=== PATIENT | male | born 1985 | race Caucasian/White ===

== ENCOUNTER 2016-03-28 00:42 | Emergency (ER) ==
--- NOTE | 2016-03-28 01:04 | ED EKG INTERP ---
EKG Interpretation - EKG Time of EKG reading by physician:: 01:03 EKG Read and Signed by:: Nick Ernandez Rate: 96 Rhythm: NSR [place]: normal QRS: normal MT Interval: normal Attestation - Scribe Verification/Attestation Scribe:: Rose Hoffmann Acting as Scribe for:: Nick Ernandez Scribe documention review:: This chart was documented by a scribe and accurately reflects the service the provider performed and the decisions made by the provider.
--- NOTE | 2016-03-28 01:24 | PROVIDER DOCUMENTATION ---
Addendum entered and electronically signed by Nick Ernandez MD 03/28/16 02:32 : Additional Progress - ADDITIONAL PLAN OF CARE/RESULTS Additional Progress/Plan/Lab Results: denies suicidal or homicidal ideation Original Note: HPI-General Adult - General Source: patient - History of Present Illness -Gen Adult Nature of Presenting Problems: 30 y/o m presents to the ed with left sided weakness. pt states he has been under a lot of stress lately since his ex took off out of state with his 7 month old son. pt does have a hx of anxiety attacks.pt states he has been like this for about a week. pt denies any other symptoms. Location of Pain/Injury: reports: generalized Quality of Pain: reports: aching Severity: reports: mild Onset/Duration: reports: 1 week ago Timing: reports: still present Associated Symptoms: reports: weakness Similar Symptoms Previously?: No Recently seen or treated by another doctor?: No <Rose Hoffmann - Last Filed: 03/28/16 01:20> - General Source: patient (Patient is a 30 year old white male with history of anxiety disorder who takes Klonopin who became upset tonight and developed weakness and pain in his arms,nausea, and spasms in his wrist after finding out that his had taken his 6month old son out of state. Patient was not comfortable telling the triage nurse. He preferred to talk to a male "man to man".) - History of Present Illness -Gen Adult Location of Pain/Injury: reports: upper extremity Pain Radiation: reports: no radiation Quality of Pain: reports: aching Onset/Duration: reports: just prior to arrival Timing: reports: improving Context/Activities at Onset: reports: recent emotional stress Associated Symptoms: reports: nausea, weakness. denies: chest pain, diaphoresis , diarrhea, EENT symptoms, genitourinary problems, vomiting, trouble walking Similar Symptoms Previously?: Yes Recently seen or treated by another doctor?: No <Nick Ernanedz - Last Filed: 03/28/16 02:31> - General Chief Complaint: Weakness Stated Complaint: NAUSEATED, WEAK, LT ARM PAIN Time Seen by Provider: 03/28/16 00:58 Allergies/Adverse Reactions: Patient Allergies Allergy/AdvReac Type Severity Reaction Status Date / Time ketorolac tromethamine * Allergy Mild RASH Verified 03/11/16 18:20 [From Toradol] Home Medications: Clonazepam [Klonopin] 1 mg PO BID 01/31/16 Diltiazem HCl [Diltiazem ER] 240 mg PO DAILY 01/31/16 Omeprazole [Prilosec] 40 mg PO DAILY 01/31/16 Levothyroxine [Synthroid] 25 mcg PO DAILY 03/11/16 Review of Systems - Adult - REVIEW OF SYSTEMS - ADULT Constitutional: denies: chills, fever Cardiovascular: denies: chest pain, palpitations Neurological: denies: dizziness/vertigo, headache/migraines <Rose Hoffmann - Last Filed: 03/28/16 01:20> - REVIEW OF SYSTEMS - ADULT Constitutional: denies: chills, fever Eyes: reports: no symptoms reported Ears, Nose, Mouth & Throat: reports: no symptoms reported Cardiovascular: denies: chest pain Respiratory: denies: shortness of breath Gastrointestinal: reports: nausea. denies: vomiting Genitourinary: denies: dysuria Musculoskeletal: reports: no symptoms reported Integumentary: reports: see HPI Neurological: denies: ataxia, numbness Psychiatric: reports: anxiety, emotional problems. denies: suicidal thoughts Endocrine: reports: no symptoms reported All Other Systems: Reviewed and Negative <Nick Ernandez - Last Filed: 03/28/16 02:31> Past History - Adult - PAST MEDICAL HISTORY-ADULT Review of Records: reports: Old Records Reviewed, Nursing Assessment Review, Medications Reviewed Cardiovascular: reports: HTN Respiratory: reports: asthma Gastrointestinal: reports: GERD Musculoskeletal: reports: arthritis Psychiatric: reports: anxiety - PRIOR SURGERIES/PROCEDURES Surgical/Procedure History: reports: appendectomy, other (eye surgery) - IMMUNIZATION STATUS Childhood Immunizations: See Nurse Assessment Flu Vaccine: See Nurse Assessment - SOCIAL HISTORY Smoking: chew Provider spent 3-5 mins advising pt. on dangers of tobacco.: Discussed manners to quit use, and f/u contacts for add'l counseling. <Rose Hoffmann - Last Filed: 03/28/16 01:20> Physical Exam-General - PHYSICAL EXAM-ADULT Initial Vital Signs Reviewed: Yes - CONSTITUTIONAL General Appearance: alert, anxious - EYES Eyes: PERRL/EOMI, pink conjunctivae, fundi clear, no AV nicking - HEAD, EARS, NOSE, MOUTH & THROAT HENMT: normocephalic/atraumatic, moist mucous membranes, normal ENT inspection - NECK Neck: non-tender, full range of motion, supple - RESPIRATORY Respiratory: chest non-tender, lungs clear, normal breath sounds - CARDIOVASCULAR Cardiovascular: normal peripheral pulses, regular rate, rhythm - GASTROINTESTINAL (ABDOMEN) Abdominal Exam: normal bowel sounds, non tender, soft - MUSCULOSKELETAL Back Exam: normal inspection - SKIN Integumentary: normal color, normal turgor, warm/dry - PSYCHIATRIC Psych/Mental Status: normal mood/affect, normal thought content, normal thought process, oriented x 3 <Rose Hoffmann - Last Filed: 03/28/16 01:20> Departure <Rose Hoffmann - Last Filed: 03/28/16 01:20> - Departure Time of Disposition Order: 02:30 Certified Medical Emergency: Emergent <Nick Ernandez - Last Filed: 03/28/16 02:31> - Departure DIAGNOSIS: Anxiety as acute reaction to exceptional stress Disposition: HOME 01 Condition: Stable Additional Instructions: continue current klonopin, plenty of rest, followup with mental health Referrals: Aj Fernandes Jr, MD [Primary Care Provider] - Physician Attestation
[2016-03-28] MEDS ORDERED: ATIVAN IM ONE (01:25)
[2016-03-28 02:10] LABS: MANUAL DIFF NEEDED? NO
[2016-03-28 02:12] LABS: BASO% 0.1 % (0.0-0.8); EOS# 0.24 X1000 (0.0-0.7); EOS% 1.7 % (0.0-10.0); HEMATOCRIT 43.7 % (42.0-52.0); HEMOGLOBIN 14.7 g/dL (14.0-18.0); IMM GRAN# 0.05 X1000 (0.0-0.04); IMM GRAN% 0.4 % (0.0-0.5); LYMPH% 29.2 % (20.5-51.1); MCH 26.6 PG (27-31); MCHC 33.6 g/dL (33-37); MCV 79.2 FL (81-99); MONO# 1.34 X1000 (0.11-0.59); MONO% 9.5 % (1.7-9.3); MPV 9.7 FL (7.4-10.4); NEUT% 59.1 % (42.2-75.2); PLT 391 X1000 (130-400); RBC 5.52 XMIL (4.7-6.1)
[2016-03-28 02:25] LABS: AGAP 14; ALKALINE PHOSPHATASE 70 U/L (32-122); BUN 7 mg/dL (8-22); CALCIUM 8.7 mg/dL (8.8-10.2); CHLORIDE 101 mmol/L (98-107); CK PROFILE 42 U/L (24-204); COSMO 273; GOT 15 U/L (10-34); GPT 19 U/L (10-44); SODIUM 138 mmol/L (136-145); TCO2 23 mmol/L (25-35); TOTAL BILIRUBIN 0.44 mg/dL (0.20-1.00); TOTAL PROTEIN 7.4 g/dL (6.3-8.3)
[2016-03-28 02:32] LABS: UR AMPHETAMINES QUAL NONE DETECTED (NONE DETECT); UR BARBITUATES QUAL NONE DETECTED (NONE DETECT); UR BENZODIAZEPIN QUAL PRESUMPTIVE POSITIVE (NONE DETECT); UR CANNABINOIDS QUAL NONE DETECTED (NONE DETECT); UR COCAINE QUAL NONE DETECTED (NONE DETECT); UR METHADONE QUAL NONE DETECTED (NONE DETECT); UR OPIATES QUAL PRESUMPTIVE POSITIVE (NONE DETECT); UR OXYCODONE QUAL NONE DETECTED (NONE DETECT); UR PCP QUAL NONE DETECTED (NONE DETECT)
[2016-03-28 02:36] VITALS: BP 141/94
--- NOTE | 2016-03-29 05:40 | EKG Report ---
Test Performed on : 03/28/2016 00:50:20 AM Test Reason : weakness Blood Pressure : / mmHG Vent. Rate : 096 BPM Atrial Rate : 096 BPM P-R Int : 168 ms QRS Dur : 098 ms QT Int : 368 ms P-R-T Axes : 010 -48 009 degrees QTc Int : 464 ms Normal sinus rhythm. Pulmonary disease pattern Incomplete right bundle branch block Left anterior fascicular block Abnormal ECG When compared with ECG of 11-MAR-2016 17:13, No significant change was found Unconfirmed Result
== END 2016-03-28 02:36 | disposition home or self-care (01) ==
LOC: ED 00:42
DX: F41.8 Other specified anxiety disorders (principal); M62.81 Muscle weakness (generalized); M79.602 Pain in left arm; M79.601 Pain in right arm; R11.0 Nausea; M62.838 Other muscle spasm; I10 Essential (primary) hypertension; K21.9 Gastro-esophageal reflux disease without esophagitis; Z79.899 Other long term (current) drug therapy; M19.90 Unspecified osteoarthritis, unspecified site; F17.220 Nicotine dependence, chewing tobacco, uncomplicated; Z71.6 Tobacco abuse counseling
CPT/HCPCS: 80053; 82550; 84484; 85025; 93005; 96372; G0480; J2060

== ENCOUNTER 2016-05-24 20:42 | Emergency (ER) ==
[2016-05-24] MEDS ORDERED: DUONEB (A & A) INH ONE (21:48)
[2016-05-24] MEDS ORDERED: DECADRON IM ONE (21:48)
--- NOTE | 2016-05-24 21:48 | PROVIDER DOCUMENTATION ---
HPI-General Adult <Amanda Namyldenis MachucaElizabeth - Last Filed: 05/24/16 21:49> - General Source: patient - History of Present Illness -Gen Adult Nature of Presenting Problems: 30 year old M presents to the ED with a cc of cough, congestion, and body aches with an onset of this morning. PT states that he has been exposed to strep throat in the last few days. Location of Pain/Injury: reports: generalized Pain Radiation: reports: no radiation Quality of Pain: reports: aching Severity: reports: mild Onset/Duration: reports: this morning Timing: reports: still present Context/Activities at Onset: reports: none Modifying Factors: improves with: nothing Associated Symptoms: reports: cough, fatigue, muscle aches, sinus congestion/ drainage Similar Symptoms Previously?: No Recently seen or treated by another doctor?: No <Nurys Chung - Last Filed: 05/25/16 01:13> - General Chief Complaint: General Adult Stated Complaint: RT FT SWOLLEN, BODY ACHES, CONGESTED Time Seen by Provider: 05/24/16 21:41 Allergies/Adverse Reactions: Patient Allergies Allergy/AdvReac Type Severity Reaction Status Date / Time ketorolac tromethamine * Allergy Mild RASH Verified 05/24/16 22:10 [From Toradol] Home Medications: Home Medication List Medication Instructions Recorded Confirmed Last Taken Type Diltiazem HCl [Diltiazem ER] 240 mg PO DAILY 01/31/16 05/24/16 05/24/16 History Omeprazole [Prilosec] 40 mg PO DAILY 01/31/16 05/24/16 05/24/16 History Albuterol Sulfate [Proair Hfa] 8.5 gm IH Q4H PRN PRN #1 [email or web address] 05/24/16 Unknown Rx Azithromycin [Zithromax Z-Ap] 250 mg PO DIRECTED #1 pkg 05/24/16 Unknown Rx Review of Systems - Adult - REVIEW OF SYSTEMS - ADULT Constitutional: reports: fatique. denies: chills, fever Eyes: reports: no symptoms reported Ears, Nose, Mouth & Throat: reports: sinus problem. denies: ear pain, throat pain Cardiovascular: reports: no symptoms reported Respiratory: reports: cough. denies: shortness of breath Gastrointestinal: reports: no symptoms reported Genitourinary: reports: no symptoms reported Musculoskeletal: reports: muscle aches. denies: muscle weakness Integumentary: denies: skin sores/ulcer, skin thickening Neurological: denies: dizziness/vertigo, headache/migraines Psychiatric: reports: no symptoms reported Endocrine: reports: no symptoms reported Hematologic/Lymphatic: reports: no symptoms reported Allergic/Immunologic: reports: no symptoms reported All Other Systems: Reviewed and Negative <Nurys Chung - Last Filed: 05/25/16 01:13> Past History - Adult - PAST MEDICAL HISTORY-ADULT Review of Records: reports: Nursing Assessment Review, Medications Reviewed Major Childhood Illnesses: reports: denies history Cardiovascular: reports: HTN Respiratory: reports: asthma Gastrointestinal: reports: GERD Musculoskeletal: reports: arthritis Psychiatric: reports: anxiety - PRIOR SURGERIES/PROCEDURES Surgical/Procedure History: reports: appendectomy, other (eye surgery) - IMMUNIZATION STATUS Childhood Immunizations: See Nurse Assessment Flu Vaccine: See Nurse Assessment - SOCIAL HISTORY Smoking: chew Provider spent 3-5 mins advising pt. on dangers of tobacco.: Discussed manners to quit use, and f/u contacts for add'l counseling. Substance Use: none/never Alcohol Use Frequency: never <Nurys Chung - Last Filed: 05/25/16 01:13> Physical Exam-General - PHYSICAL EXAM-ADULT Initial Vital Signs Reviewed: Yes - CONSTITUTIONAL General Appearance: appears well, alert, no apparent distress - HEAD, EARS, NOSE, MOUTH & THROAT HENMT: other (minimally enlarged tonsils) - RESPIRATORY Respiratory: chest non-tender, normal breath sounds, wheezing - CARDIOVASCULAR Cardiovascular: normal peripheral pulses, regular rate, rhythm, no edema - GASTROINTESTINAL (ABDOMEN) Abdominal Exam: non tender, soft - MUSCULOSKELETAL Extremity: normal inspection - SKIN Integumentary: normal color, normal turgor, warm/dry - PSYCHIATRIC Psych/Mental Status: normal mood/affect, normal thought content, normal thought process, oriented x 3 <Nurys Chung - Last Filed: 05/25/16 01:13> Progress - PLAN OF CARE/RESULTS Progress/Plan/Lab Results: plan of care: medications Orders Category Date Time Status INFLUENZA SCREEN A/B Stat Lab 05/24/16 20:55 Completed Albuterol 2.5MG/Ipratrop 0.5MG [Duoneb (A & A)] Med 05/24/16 21:48 Discontinued 3 ml INH NOW ONE Dexamethasone [Decadron] Med 05/24/16 21:48 Discontinued 4 mg IM NOW ONE Aerosol Treatments Routine Oth 05/24/16 21:49 Completed Aerosol Treatments Stat Oth 05/24/16 21:49 Completed Vital Signs - 24 hr 05/24/16 05/24/16 05/24/16 20:50 22:02 22:20 Temperature 98.9 F 98.4 F Pulse Rate 116 H 115 H 104 H Respiratory 18 18 20 Rate Blood Pressure 147/98 162/96 O2 Sat by Pulse 100 98 Oximetry Pt given results and will be d/c home w/ rx to follow up with PCP. Pt verbally understood instructions. PT remained clinically stable throughout the course of the ED stay and will return if symptoms worsen. <Nurys Chung - Last Filed: 05/25/16 01:13> Departure - Departure Time of Disposition Order: 21:49 Certified Medical Emergency: Emergent <Rosy Nam - Last Filed: 05/24/16 21:49> <Nurys Chung - Last Filed: 05/25/16 01:13> - Departure DIAGNOSIS: Bronchitis Disposition: HOME 01 Condition: Stable Additional Instructions: Follow up with your primary care physician ED Follow Up Instructions: You have been treated by a care provider in the Emergency Department. These instructions are being provided to you so you can have an understanding of how to care for yourself upon discharge. Upon discharge from the Emergency Department, you are responsible for making arrangements for follow-up care by a physician of your choice. Take all prescribed medications as directed. Return to the Emergency Department immediately for any new or worsening symptoms. You may call the Physician Referral phone number at [phone] to obtain a list of Physicians who are taking new patients. Prescriptions: Albuterol Sulfate [Proair Hfa] 8.5 gm IH Q4H PRN PRN #1 hfa.[email or web address] PRN Reason: Wheezing Azithromycin [Zithromax Z-Ap] 250 mg PO DIRECTED #1 pkg Referrals: None,PCP [Primary Care Provider] - Forms: Return to School/Parent Work Instructions: Acute Bronchitis, [id number] Attestation - Scribe Verification/Attestation Scribe:: Nurys Chung Acting as Scribe for:: Rosy Nam Scribe documention review:: This chart was documented by a scribe and accurately reflects the service the provider performed and the decisions made by the provider. <Nurys Chung - Last Filed: 05/25/16 01:13> Physician Attestation - Physician Attestation I, the provider, attest to the following statement:: Rosy Nam Physician documentation Attestation:: This documentation recorded by the scribe accurately reflects the service I personally performed and the decisions made by me. <Nurys Chung - Last Filed: 05/25/16 01:13>
[2016-05-24 22:24] VITALS: BP 162/96
== END 2016-05-24 22:28 | disposition home or self-care (01) ==
LOC: ED 20:42
DX: J40 Bronchitis, not specified as acute or chronic (principal); R05 Cough; R09.81 Nasal congestion; M79.1 Myalgia; R53.83 Other fatigue; R22.41 Localized swelling, mass and lump, right lower limb; J35.1 Hypertrophy of tonsils; R06.2 Wheezing; Z79.899 Other long term (current) drug therapy; I10 Essential (primary) hypertension; K21.9 Gastro-esophageal reflux disease without esophagitis; M19.90 Unspecified osteoarthritis, unspecified site; F17.220 Nicotine dependence, chewing tobacco, uncomplicated; Z71.6 Tobacco abuse counseling
CPT/HCPCS: 87804; 94640; J1100

== ENCOUNTER 2016-05-26 13:12 | Emergency (ER) ==
--- NOTE | 2016-05-26 14:54 | PROVIDER DOCUMENTATION ---
HPI-Abdominal Pain/GI Problem - General Chief Complaint: Constipation Stated Complaint: "CONSTIPATED" Time Seen by Provider: 05/26/16 14:53 Source: patient Allergies/Adverse Reactions: Patient Allergies Allergy/AdvReac Type Severity Reaction Status Date / Time ketorolac tromethamine * Allergy Mild RASH Verified 05/24/16 22:10 [From Toradol] Home Medications: Home Medication List Medication Instructions Recorded Confirmed Last Taken Type Diltiazem HCl [Diltiazem ER] 240 mg PO DAILY 01/31/16 05/24/16 05/24/16 History Omeprazole [Prilosec] 40 mg PO DAILY 01/31/16 05/24/16 05/24/16 History Albuterol Sulfate [Proair Hfa] 8.5 gm IH Q4H PRN PRN #1 [email or web address] 05/24/16 Unknown Rx Azithromycin [Zithromax Z-Ap] 250 mg PO DIRECTED #1 pkg 05/24/16 Unknown Rx Promethazine [Phenergan] 25 mg PO Q6H PRN PRN #20 tablet 05/26/16 Unknown Rx - History of Present Illness-ABD Nature of Presenting Problems: PATIENT REPORTS HAS BEEN TAKING NORCO SINCE DENTAL PROCEDURE. HAS NOT HAD BM X4 DAYS. NO RELIEF WITH OTC LAXATIVES/STOOL SOFTENERS. STATES GENERALIZED ABD PAIN AND NAUSEA. Abdominal Pain Onset Location: reports: generalized abdomen Pain Radiation: reports: no radiation Quality of Pain: reports: aching, sharp Severity in ED: reports: moderate Onset/Duration: reports: 4 days ago Timing: reports: still present Activities at Onset: reports: none Modifying Factors: improves with: nothing Associated Symptoms: reports: nausea Last BM: 4 days ago Dark Stools Present?: reports: none noticed Rectal Bleeding: reports: none Review of Systems - Adult - REVIEW OF SYSTEMS - ADULT Constitutional: reports: no symptoms reported Eyes: reports: no symptoms reported Ears, Nose, Mouth & Throat: reports: no symptoms reported Cardiovascular: reports: no symptoms reported Respiratory: reports: no symptoms reported Gastrointestinal: reports: see HPI Genitourinary: reports: no symptoms reported Musculoskeletal: reports: no symptoms reported Integumentary: reports: no symptoms reported Neurological: reports: no symptoms reported Psychiatric: reports: no symptoms reported Endocrine: reports: no symptoms reported Hematologic/Lymphatic: reports: no symptoms reported Allergic/Immunologic: reports: no symptoms reported Past History - Adult - PAST MEDICAL HISTORY-ADULT Review of Records: reports: Nursing Assessment Review, Medications Reviewed, Social history reviewed & non-contributory. Major Childhood Illnesses: reports: denies history Cardiovascular: reports: HTN Respiratory: reports: asthma Gastrointestinal: reports: GERD Musculoskeletal: reports: arthritis Psychiatric: reports: anxiety - PRIOR SURGERIES/PROCEDURES Surgical/Procedure History: reports: appendectomy, other (eye surgery) - IMMUNIZATION STATUS Childhood Immunizations: See Nurse Assessment Flu Vaccine: See Nurse Assessment Physical Exam-General - PHYSICAL EXAM-ADULT Initial Vital Signs Reviewed: Yes - CONSTITUTIONAL General Appearance: appears well, alert, no apparent distress - EYES Eyes: PERRL/EOMI - HEAD, EARS, NOSE, MOUTH & THROAT HENMT: normocephalic/atraumatic - NECK Neck: full range of motion, supple - RESPIRATORY Respiratory: lungs clear - CARDIOVASCULAR Cardiovascular: regular rate, rhythm - GASTROINTESTINAL (ABDOMEN) Abdominal Exam: normal bowel sounds, soft, tenderness (GENERALIZED) - LYMPHATIC Lymphatic: no adenopathy - MUSCULOSKELETAL Extremity: normal range of motion, normal gait - SKIN Integumentary: normal color, normal turgor, warm/dry - NEUROLOGIC Neurologic: grossly normal, no motor/sensory deficits - PSYCHIATRIC Psych/Mental Status: normal mood/affect, normal thought content, normal thought process, oriented x 3 Progress - PLAN OF CARE/RESULTS Progress/Plan/Lab Results: 1635--NO BM SINCE RELISTOR DISCUSSED PATIENT WITH DR. PHELPS. DR. STORM STATES TO INSTRUCT PATIENT ON HIGH DOSE MIRALAX, 1 SCOOP Q6H TO PRODUCE BM. PATIENT VOICES UNDERSTANDING OF MIRALAX INSTRUCTIONS. Orders Category Date Time Status ABDOMEN FLAT/UPRIGHT [RAD] Stat Exams 05/26/16 14:10 Draft Methylnaltrexone [Relistor] Med 05/26/16 15:12 Discontinued 12 mg SUBQ NOW ONE Promethazine [Phenergan] Med 05/26/16 15:12 Discontinued 25 mg IM NOW ONE Vital Signs - 24 hr 05/26/16 13:18 Temperature 98 F Pulse Rate 98 H Respiratory 18 Rate Blood Pressure 154/107 O2 Sat by Pulse 98 Oximetry - REASSESSMENT Reassessment #1 Time Reassessed: 16:35 Status: improving (PATIENT STATES DROWSY FROM PHENERGAN, BUT NO LONGER NAUSEATED. STATES ABD PAIN HAS IMPROVED, BUT HAS NOT HAD ANY BM RESULTS SINCE RELISTOR GIVEN.) - XRAY 1 XRAY Study: Abdomen Impression: Normal XRAY Interpretation: NAD PER DR. RODRIGUEZ REPORT. Departure - Departure Time of Disposition Order: 16:43 DIAGNOSIS: Nausea Constipation Qualifiers: Constipation type: drug induced constipation Qualified Code(s): K59.03 - Drug induced constipation Disposition: HOME 01 Certified Medical Emergency: Emergent Condition: Good Additional Instructions: MIRALAX OVER THE COUNTER FOR CONSTIPATION SYMPTOMS. DISSOLVE 1 DOSE EVERY 6 HOURS TO HELP HAVE BOWEL MOVEMENT. USE OVER THE COUNTER STOOL SOFTENERS TO HELP AVOID ANY FURTHER CONSTIPATION WHILE TAKING NARCOTIC PAIN MEDICATION. ED Follow Up Instructions: You have been treated by a care provider in the Emergency Department. These instructions are being provided to you so you can have an understanding of how to care for yourself upon discharge. Upon discharge from the Emergency Department, you are responsible for making arrangements for follow-up care by a physician of your choice. Take all prescribed medications as directed. Return to the Emergency Department immediately for any new or worsening symptoms. You may call the Physician Referral phone number at [phone] to obtain a list of Physicians who are taking new patients. Prescriptions: Promethazine [Phenergan] 25 mg PO Q6H PRN PRN #20 tablet PRN Reason: Nausea Referrals: Alphonse Wilson MD [STAFF PHYSICIAN] - Forms: Return to School/Parent Work Instructions: Constipation, Adult, Kity-ef-Isoo Attestation - Physician/ FCO Attestation Patient care was provided by Advanced Practice Provider:: Yes Advanced Practice Provider:: Carlos Wise Advanced Practice Provider documentation review:: The Mid-level provider documentation, treatment plan and medical decision making was reviewed by the physician who agrees with all treatment and medical decision making by the MLP.
[2016-05-26] MEDS ORDERED: RELISTOR SUBQ ONE (15:12)
[2016-05-26] MEDS ORDERED: PHENERGAN IM ONE (15:12)
--- NOTE | 2016-05-26 15:21 | Diag Imaging Result Document ---
PROCEDURE NAME: ABDOMEN FLAT/UPRIGHT - 05/26/2016 FLAT AND UPRIGHT ABDOMEN: FINDINGS: There is a nonspecific bowel gas pattern. There is no evidence of organomegaly or mass. There are no abnormal calcifications. IMPRESSION: No evidence of acute disease.
[2016-05-26 16:58] VITALS: BP 146/93
== END 2016-05-26 17:03 | disposition home or self-care (01) ==
LOC: P.ED 13:12
DX: K59.03 Drug induced constipation (principal); T50.905A Adverse effect of unspecified drugs, medicaments and biological substances, initial encounter; R11.0 Nausea; R10.84 Generalized abdominal pain; R10.819 Abdominal tenderness, unspecified site; I10 Essential (primary) hypertension; M19.90 Unspecified osteoarthritis, unspecified site; K21.9 Gastro-esophageal reflux disease without esophagitis; Z79.899 Other long term (current) drug therapy
CPT/HCPCS: 74020; J2550

== ENCOUNTER 2018-06-08 12:48 | Inpatient (IN) ==
[2018-06-08] MEDS ORDERED: PHENOBARBITAL IV PRN (14:11)
[2018-06-08] MEDS ORDERED: NICOTINE GUM BUCCAL PRN (14:11)
[2018-06-08] MEDS ORDERED: D5W 1,000 ML IV PRN (14:11)
[2018-06-08] MEDS ORDERED: SENOKOT PO PRN (14:11)
[2018-06-08] MEDS ORDERED: SEROQUEL PO PRN (14:11)
[2018-06-08] MEDS ORDERED: MAALOX PLUS LIQUID PO PRN (14:11)
[2018-06-08] MEDS ORDERED: NICODERM PATCH TD PRN (14:11)
[2018-06-08] MEDS ORDERED: ZOFRAN IV PRN (14:11)
[2018-06-08] MEDS ORDERED: DULCOLAX PR PRN (14:11)
[2018-06-08] MEDS ORDERED: ZOFRAN IM PRN (14:11)
[2018-06-08] MEDS ORDERED: MOTRIN PO PRN (14:11)
[2018-06-08] MEDS ORDERED: TYLENOL PO PRN (14:11)
[2018-06-08] MEDS ORDERED: DESYREL PO PRN (14:11)
[2018-06-08] MEDS ORDERED: IMODIUM PO PRN ×2 (14:11)
[2018-06-08] MEDS: ZOFRAN ODT PO PRN (14:45)
[2018-06-08] MEDS ORDERED: TUBERSOL ID ONE (15:00)
[2018-06-08 15:22] LABS: HEMATOCRIT 48.5 % (42.0-52.0); HEMOGLOBIN 16.5 g/dL (14.0-18.0); MCH 27.1 PG (27-31); MCV 79.6 FL (81-99); MPV 9.6 FL (7.4-10.4); RBC 6.09 XMIL (4.7-6.1); RDW 13.3 % (11.5-14.5); WBC 15.36 X1000 (4.8-10.8)
[2018-06-08] MEDS ORDERED: LIBRIUM PO PRN (15:26)
[2018-06-08] MEDS ORDERED: ATARAX PO PRN (15:26)
[2018-06-08] MEDS ORDERED: BENTYL PO PRN (15:26)
[2018-06-08] MEDS ORDERED: ROBAXIN PO PRN (15:26)
[2018-06-08] MEDS ORDERED: SINEMET 25/100 PO PRN (15:26)
[2018-06-08 15:29] LABS: UR AMPHETAMINES QUAL NONE DETECTED (NONE DETECT); UR BARBITUATES QUAL NONE DETECTED (NONE DETECT); UR BENZODIAZEPIN QUAL PRESUMPTIVE POSITIVE (NONE DETECT); UR CANNABINOIDS QUAL PRESUMPTIVE POSITIVE (NONE DETECT); UR COCAINE QUAL NONE DETECTED (NONE DETECT); UR METHADONE QUAL NONE DETECTED (NONE DETECT); UR METHAMPHETAMINE QUAL NONE DETECTED (NONE DETECT); UR OPIATES QUAL NONE DETECTED (NONE DETECT); UR OXYCODONE QUAL NONE DETECTED (NONE DETECT); UR PCP QUAL NONE DETECTED (NONE DETECT); UR PROPOXYPHENE QUAL NONE DETECTED (NONE DETECT); UR TCA QUAL NONE DETECTED (NONE DETECT)
[2018-06-08 15:38] LABS: AMYLASE 20 U/L (20-200); LIPASE 14 U/L (13-60)
[2018-06-08 15:42] LABS: AGAP 15; ALBUMIN 4.2 g/dL (3.5-5.0); ALKALINE PHOSPHATASE 88 U/L (32-122); BUN 9 mg/dL (8-22); CALCIUM 8.1 mg/dL (8.8-10.2); CHLORIDE 96 mmol/L (98-107); COSMO 268; CREATININE 0.8 mg/dL (0.7-1.2); ESTIMATED GFR > 60; GLUCOSE 148 mg/dL (70-104); GOT 20 U/L (10-34); GPT 32 U/L (10-44); POTASSIUM 3.8 mmol/L (3.5-5.1); SODIUM 133 mmol/L (136-145); TCO2 22 mmol/L (25-35); TOTAL PROTEIN 8.3 g/dL (6.3-8.3)
[2018-06-08] MEDS: SUBOXONE 2 MG/0.5 MG FILM SL SCH (16:53)
[2018-06-08] MEDS: PRILOSEC PO SCH (17:04)
[2018-06-08] MEDS: KLONOPIN PO PRN (17:29)
[2018-06-08 17:47] LABS: URINE SOURCE CLEAN CATCH
[2018-06-08 17:59] LABS: BILIRUBIN URINE NEGATIVE (NEGATIVE); CLARITY CLEAR (CLEAR); COLOR YELLOW; GLUCOSE URINE NEGATIVE (NEGATIVE); KETONE URINE 1+(Small) mg/dL (NEGATIVE)
[2018-06-08 18:00] LABS: BLOOD URINE NEGATIVE (NEGATIVE); LEUKOCYTES URINE TRACE (NEGATIVE); NITRITE URINE NEGATIVE (NEGATIVE); PROTEIN URINE 1+(30 mg/dL) mg/dL (NEGATIVE); URINE BACTERIA 1+ /HFP; URINE CAST NONE SEEN /LPF; URINE CRYSTAL NONE SEEN /HPF; URINE EPITHELIAL CELLS <10 /HPF (<10); URINE RBC <10 /HPF (<10); URINE WBC <10 /HPF (<10); URINE YEAST NONE SEEN /HPF; UROBILINOGEN URINE NORMAL
[2018-06-09] MEDS: SUBOXONE 2 MG/0.5 MG FILM SL SCH ×2 (03:52→16:24)
[2018-06-09] MEDS: PROTONIX PO SCH (06:23)
[2018-06-09] MEDS: PRILOSEC PO SCH (06:23)
[2018-06-09] MEDS ORDERED: KEFLEX PO SCH (08:00)
[2018-06-09] MEDS ORDERED: MBX SOLUTION MT PRN (08:58)
[2018-06-09] MEDS: EFFEXOR XR PO SCH (09:00)
[2018-06-09] MEDS: FOLIC ACID PO SCH (09:00)
[2018-06-09] MEDS: VITAMIN B-1 PO SCH (09:00)
[2018-06-09] MEDS: THERA M PLUS PO SCH (09:00)
[2018-06-10] MEDS: KLONOPIN PO PRN ×3 (00:31→19:22)
--- NOTE | 2018-06-10 01:39 | PROGRESS NOTE ---
DATE: 06/09/2018 SUBJECTIVE: Patient notes that he wanted to be better. States that he wanted to get his life back under control. States his is doing better. Since being in the hospital states that he is still anxious and nervous, worried. His throat is sore and possibly swollen, thinks it may be due to Seroquel overnight. Denies any chest pain, palpitations. Denies any fevers or chills. PHYSICAL EXAMINATION: Vital Signs: Reviewed. Temperature 97.8 degrees, pulse 98, respiratory rate 18, BP 138/70. General: Patient is very pleasant to talk with. He is in no current respiratory distress. HEENT: Normocephalic. Neck: Supple. Cardiovascular: Regular rate. Chest: Clear. Abdomen: Soft. Extremities: Moves all extremities. ASSESSMENT: 1. Nausea, vomiting. 2. Abdominal pain. 3. Myalgias. 4. Paresthesias. 5. Paroxysmal sweating. 6. Opiate abuse, withdrawal and stabilization. 7. Chronic anxiety and depression. PLAN: We will continue patient in the hospital. Continue Suboxone. Continue symptomatic medications as needed. We will continue counseling. Further orders as needed. cc: Cam Sweeney MD
[2018-06-10] MEDS: SUBOXONE 2 MG/0.5 MG FILM SL SCH ×2 (03:35→16:19)
[2018-06-10] MEDS: PROTONIX PO SCH (06:06)
[2018-06-10] MEDS: EFFEXOR XR PO SCH (09:32)
[2018-06-10] MEDS: FOLIC ACID PO SCH (09:32)
[2018-06-10] MEDS: THERA M PLUS PO SCH (09:32)
[2018-06-10] MEDS: VITAMIN B-1 PO SCH (09:32)
[2018-06-10] MEDS: ZOFRAN ODT PO PRN ×2 (09:49→19:23)
[2018-06-10] MEDS ORDERED: LISINOPRIL PO SCH (10:45)
[2018-06-10] MEDS ORDERED: HYDROCHLOROTHIAZIDE PO SCH (10:45)
[2018-06-10] MEDS: HYDROCHLOROTHIAZIDE PO SCH (11:54)
[2018-06-10] MEDS: PRINIVIL PO SCH (11:54)
[2018-06-10] MEDS: NEURONTIN PO SCH ×2 (12:35→16:20)
--- NOTE | 2018-06-11 00:32 | PROGRESS NOTE ---
DATE: 06/10/2018 SUBJECTIVE: Patient notes he still feels terrible, still having muscle aches and fatigue. Denies any fevers or chills. Denies any dysuria, urinary frequency. PHYSICAL EXAMINATION: Vital Signs: Reviewed. Patient is awake, alert, currently he is in no respiratory distress. He is afebrile. Temperature 98 degrees, pulse 98, respiratory 18, BP 138/70. General: Patient is an obese male who is pleasant talk with but still somewhat ill appearing. HEENT: Normocephalic. Neck: Supple. Cardiovascular: Regular rate. Chest: Clear. Abdomen: Soft. Extremities: Moves all extremities. ASSESSMENT: 1. Nausea, vomiting. 2. Abdominal pain. 3. Myalgias. 4. Paresthesias. 5. Paroxysmal sweating. 6. Opiate abuse, withdrawal and stabilization. 7. Chronic anxiety, depression. 8. Morbid obesity. PLAN: We will continue patient in the hospital. Continue counseling. At this point we will increase his Suboxone as he is still having some withdrawal symptoms and the 4 mg is not lasting quite long enough. We will continue counseling. Hopefully home over the next 1 or 2 days. cc: Cam Sweeney MD
[2018-06-11] MEDS: KLONOPIN PO PRN ×4 (00:50→21:37)
[2018-06-11] MEDS: SUBOXONE 2 MG/0.5 MG FILM SL SCH (03:16)
[2018-06-11] MEDS: PROTONIX PO SCH (06:14)
[2018-06-11] MEDS: PRINIVIL PO SCH (08:42)
[2018-06-11] MEDS: VITAMIN B-1 PO SCH (08:42)
[2018-06-11] MEDS: EFFEXOR XR PO SCH (08:42)
[2018-06-11] MEDS: HYDROCHLOROTHIAZIDE PO SCH (08:42)
[2018-06-11] MEDS: NEURONTIN PO SCH ×3 (08:42→16:19)
[2018-06-11] MEDS: THERA M PLUS PO SCH (08:43)
[2018-06-11] MEDS: FOLIC ACID PO SCH (08:43)
[2018-06-11] MEDS: SUBOXONE 8 MG/2 MG FILM SL SCH ×2 (11:33→21:36)
[2018-06-11] MEDS: ZOFRAN ODT PO PRN (21:37)
--- NOTE | 2018-06-11 21:50 | PROGRESS NOTE ---
DATE: 06/11/2018 SUBJECTIVE: Patient currently admits he does not feel well. States he is still having some muscle aches and paresthesias. Denies any fevers or chills. PHYSICAL EXAMINATION: Vital Signs: Reviewed. Temperature 98 degrees, pulse 90, respiratory rate 18, BP 148/81. General: Patient is in no current respiratory distress. HEENT: Normocephalic. Neck: Supple. Cardiovascular: Regular rate. Chest: Clear. Abdomen: Soft, obese. Extremities: Moves all extremities. ASSESSMENT: 1. Nausea/vomiting. 2. Abdominal pain. 3. Myalgias. 4. Paresthesias. 5. Paroxysmal sweating. 6. Opiate abuse, withdrawal, and stabilization. PLAN: We will continue patient in the hospital today. Continue counseling. Further orders as needed. We will increase his Suboxone to 8 and continue counseling. Hopefully home over the next 24 to 48 hours. cc: Cam Sweeney MD
[2018-06-12] MEDS: PROTONIX PO SCH (06:33)
[2018-06-12] MEDS: FOLIC ACID PO SCH (08:56)
[2018-06-12] MEDS: EFFEXOR XR PO SCH (08:56)
[2018-06-12] MEDS: SUBOXONE 8 MG/2 MG FILM SL SCH (08:57)
[2018-06-12] MEDS: VITAMIN B-1 PO SCH (08:57)
[2018-06-12] MEDS: THERA M PLUS PO SCH (08:57)
[2018-06-12] MEDS: PRINIVIL PO SCH (08:57)
[2018-06-12] MEDS: HYDROCHLOROTHIAZIDE PO SCH (08:58)
[2018-06-12] MEDS: NEURONTIN PO SCH (08:58)
[2018-06-12 10:32] VITALS: BP 134/84
[2018-06-12] MEDS: KLONOPIN PO PRN (10:59)
== END 2018-06-12 13:48 | disposition home or self-care (01) | DRG 897 ==
LOC: P.DIRADM 12:48 → P.MEDSURG 13:07
PROVIDERS: ADMIT Family Medicine; ATTEND Family Medicine
CPT/HCPCS: 80053; 80104; 80301; 80305; 80307; 80320; 81001; 82055; 82150; 82948; 83690; 85027; 86580; A9270; G0431; G0434; G0477; G0480; G6040; XXXXX